=== PATIENT | female | born 1950 | race Caucasian/White ===

== ENCOUNTER 2017-09-27 16:01 | Emergency (ER) | payer MEDICARE, BC ==
[2017-09-27 16:29] LABS: BASOPHILS 0.1 % (0-2); EOSINOPHILS 1.6 % (0-7); HEMATOCRIT 45.4 % (36.0-48.0); HEMOGLOBIN 15.3 g/dL (12-16); IMMATURE GRANULOCYTES 0.4 % (0-5); LYMPHOCYTES 19.5 % (15-50); MCH 30.6 pg (26.0-34.0); MCHC 33.7 g/dL (31.0-37.0); MCV 90.8 fL (80.0-100.0); MEAN PLATELET VOLUME 9.7 fL (7.4-10.4); MONOCYTES 7.8 % (2-11); NEUTROPHILS 70.6 % (40-80); PLATELET COUNT 197 10x3/uL (130-400); RDW 13.9 % (11.5-14.5)
[2017-09-27 16:54] LABS: ALBUMIN 3.3 g/dL (3.4-5.0); ALKALINE PHOSPHATASE 296 U/L (46-116); ALT (SGPT) 99 U/L (10-68); BILIRUBIN - TOTAL 0.29 mg/dL (0.2-1.3); CALC OSMOLALITY 284 mosm/kg (275-300); CALCIUM 10.6 mg/dL (8.5-10.1); CARBON DIOXIDE 36.4 mmol/L (21.0-32.0); CHLORIDE - SERUM 97 mmol/L (98-107); CREATININE - SERUM 1.1 mg/dL (0.6-1.3); GLUCOSE 114 mg/dL (74-106); POTASSIUM - SERUM 4.4 mmol/L (3.5-5.1); PROTEIN - SERUM 7.7 g/dL (6.4-8.2); SODIUM 139 mmol/L (136-145); UREA NITROGEN 28 mg/dL (7-18); eGFR NON AFRICAN AMERICAN 52 mL/min (90-120)
[2017-09-27 17:19] LABS: CKMB 0.7 U/L (0.0-3.6); CREATINE KINASE 38 UL (21-215); TROPONIN-I < 0.017 ng/mL (0.000-0.060)
== END 2017-09-27 18:08 | disposition home or self-care (01) ==
LOC: D.ER 16:01
PROVIDERS: Family Medicine
DX: J20.9 Acute bronchitis, unspecified (principal); J44.1 Chronic obstructive pulmonary disease with (acute) exacerbation; I10 Essential (primary) hypertension; F17.200 Nicotine dependence, unspecified, uncomplicated

== ENCOUNTER 2017-12-22 07:38 | Inpatient (IN) | payer MEDICARE, BC ==
[~2017-12-22] VITALS: Ht 162.6 cm; Wt 105.2 kg
--- NOTE | ~2017-12-22 | CN ---
PATIENT NAME:MARTIN WEBSTER MEDICAL RECORD: [id number] : 46 LOCATION:D. D.2130 ADMIT DATE: 12/22/17 ACCOUNT: [id number] CONSULTING PHYSICIAN: DANA CRUZ MD REFERRING PHYSICIAN: MICK GARCIA MD DATE OF CONSULTATION: 12/22/2017 CONSULT REQUESTING PHYSICIAN: Mick Garcia MD REASON FOR CONSULTATION: Acute exacerbation of chronic obstructive pulmonary disease, [id number] hypoxic respiratory failure. HISTORY OF PRESENT ILLNESS: Ms. Webster is a 67-year-old female who has a history of chronic hypoxic respiratory failure as well as COPD. According to the patient, for the last few days, she has worsening shortness of breath. She is coughing, the cough is productive of white yellow color sputum production. There are no fever or chills, no night sweats. The patient came into the ER and the pulse ox was 86% on room air. REVIEW OF SYSTEMS: Mainly in the history of present illness. PAST MEDICAL HISTORY: 1. COPD. 2. Chronic hypoxic respiratory failure. 3. Hypertension. 4. Chronic backache. 5. She has a history of skin cancer. ALLERGIES: SHE IS ALLERGIC TO IODINE AND BETADINE. MEDICATIONS: She is on Norvasc, Catapres, Lewis, Zanaflex. PERSONAL AND SOCIAL HISTORY: The patient was a smoker for more than 30 years. She quit 4 years ago. She is a nondrinker. FAMILY HISTORY: Noncontributory. PHYSICAL EXAMINATION: GENERAL: Now, the patient is lying comfortably in bed. She is not in acute distress. VITAL SIGNS: The blood pressure 145/95, pulse is 90, respiration is 24, temperature 97.6, and SpO2 was 86% on room air. HEENT: Conjunctivae pink, sclerae nonicteric. NECK: Neck is supple, no JVD. CHEST: The chest excursion is minimal on both sides. There are wheezing on forceful expiration. HEART: Rhythm regular, normal sound, no murmur. ABDOMEN: The abdomen is soft. Bowel sounds present. No hepatosplenomegaly. RECTAL: Deferred. EXTREMITIES: No cyanosis, no clubbing, no pedal edema. SKIN: The skin is warm, normal turgor. CENTRAL NERVOUS SYSTEM: The patient is awake and alert. There are no obvious cranial nerve abnormality. The gait was not tested. CHEST RADIOGRAPH: There is no acute infiltrate. CONSULT REPORT [id number] MARTIN WEBSTER LABORATORY DATA: CBC: The WBC is 7.6, hemoglobin 13, hematocrit 40.4, the platelet count is 217. ABG: The pH is 7.32, pCO2 of 68.9, pO2 of 73, bicarbonate is 36.1. IMPRESSION: 1. Acute exacerbation of chronic obstructive pulmonary disease. 2. Sbcnb-qv-dmbecys hypoxic hypercapnic respiratory failure. 3. Acute tracheobronchitis. 4. Dyspnea on exertion. 5. Ex-smoker. 6. Acute cough. 7. Chronic backache. 8. Hypertension. RECOMMENDATIONS: 1. Adjust the dose of Levaquin. 2. Continue supplemental oxygen to keep the SpO2 above 90%. 3. Methylprednisolone IV. 4. Brovana, budesonide nebulizer. 5. Albuterol, ipratropium nebulizer. 6. Check alpha-1 antitrypsin level. 7. Follow up labs and chest radiograph. Dr. Garcia, thank you for involving me in the care of Ms. Webster. TRANSINT:[id number] Voice Confirmation ID: [id number] DOCUMENT ID: [id number] DANA CRUZ MD at 1340 CC: MICK GARCIA MD [id number] DICTATION DATE: 12/22/17 1638 PRIVATE SECTOR EXECUTIVE: 12/22/17 1736 DIS IN 12/23/17 [place] [id number]
[2017-12-22 08:27] LABS: BASOPHILS 0.3 % (0-2); EOSINOPHILS 4.7 % (0-7); HEMATOCRIT 40.4 % (36.0-48.0); IMMATURE GRANULOCYTES 0.4 % (0-5); LYMPHOCYTES 12.3 % (15-50); MCH 30.2 pg (26.0-34.0); MCHC 32.2 g/dL (31.0-37.0); MEAN PLATELET VOLUME 10.2 fL (7.4-10.4); MONOCYTES 8.3 % (2-11); PLATELET COUNT 217 10x3/uL (130-400); RDW 14.1 % (11.5-14.5); WBC 7.6 10x3/uL (4.8-10.8)
[2017-12-22 08:45] LABS: ALBUMIN 3.4 g/dL (3.4-5.0); ALKALINE PHOSPHATASE 310 U/L (46-116); ALT (SGPT) 93 U/L (10-68); CALC OSMOLALITY 280 mosm/kg (275-300); CALCIUM 9.6 mg/dL (8.5-10.1); CHLORIDE - SERUM 98 mmol/L (98-107); CREATININE - SERUM 0.9 mg/dL (0.6-1.3); GLUCOSE 136 mg/dL (74-106); POTASSIUM - SERUM 4.7 mmol/L (3.5-5.1); PROTEIN - SERUM 7.4 g/dL (6.4-8.2); SODIUM 138 mmol/L (136-145); UREA NITROGEN 22 mg/dL (7-18); eGFR NON AFRICAN AMERICAN 66 mL/min (90-120)
[2017-12-22 08:57] LABS: CREATINE KINASE 99 UL (21-215); PRO BNP 499 pg/mL (0-125)
[2017-12-22 09:00] LABS: TROPONIN-I < 0.017 ng/mL (0.000-0.060)
[2017-12-22 21:41] VITALS: BP 173/87
[2017-12-22] MEDS ORDERED: CELEBREX200 MG PO (21:58)
[2017-12-22] MEDS ORDERED: FLUTICASONE PRO16 GM NASAL (21:58)
[2017-12-22] MEDS ORDERED: NEURONTIN600 MG PO (21:59)
[2017-12-22] MEDS ORDERED: LASIX20 MG PO (21:59)
[2017-12-22] MEDS ORDERED: ZANAFLEX4 MG PO (22:00)
[2017-12-22] MEDS ORDERED: K-DUR20 MEQ PO (22:01)
[2017-12-22] MEDS ORDERED: HYDROXYZINE HCL50 MG PO (22:02)
[2017-12-22] MEDS ORDERED: DYAZIDE 37.5/251 CAP PO (22:03)
[2017-12-22] MEDS ORDERED: ELAVIL25 MG PO (22:03)
[2017-12-22] MEDS ORDERED: NORVASC10 MG PO (22:03)
[2017-12-22] MEDS ORDERED: HYDROCODONE-APA1 TAB PO (22:04)
[2017-12-22] MEDS ORDERED: XANAX0.5 MG PO (22:04)
[2017-12-22 22:35] VITALS: BP 163/87; Ht 162.6 cm; Wt 105.2 kg
[2017-12-23 00:41] VITALS: BP 133/76
[2017-12-23 05:32] VITALS: BP 109/52
[2017-12-23 07:33] VITALS: BP 165/78
[2017-12-23 11:31] VITALS: BP 144/81
[2017-12-23 15:56] VITALS: BP 138/88
[2017-12-23] MEDS ORDERED: Levaquin PREMIX PO (17:59)
[2017-12-23] MEDS ORDERED: BROVANA15 MCG/2 M INH (18:00)
[2017-12-23] MEDS ORDERED: IPRAT-ALBUT 0.5-3 ML UPD (18:00)
[2017-12-23] MEDS ORDERED: PULMICORT0.5 MG/21 UPD (18:01)
[2017-12-23] MEDS ORDERED: BENZONATATE200 MG PO (18:01)
[2017-12-23] MEDS ORDERED: MUCINEX DM ER1 EAC1 PO (18:01)
== END 2017-12-23 19:54 | disposition home or self-care (01) | DRG 193 ==
LOC: D.ER 07:38 → D.EDHOLD 09:48 → D.M2 09:48
PROVIDERS: Emergency Medicine
DX: J18.9 Pneumonia, unspecified organism (principal); J96.21 Acute and chronic respiratory failure with hypoxia; J44.1 Chronic obstructive pulmonary disease with (acute) exacerbation; J44.0 Chronic obstructive pulmonary disease with (acute) lower respiratory infection; E87.2 Acidosis; J20.9 Acute bronchitis, unspecified; R01.1 Cardiac murmur, unspecified; I10 Essential (primary) hypertension; E78.5 Hyperlipidemia, unspecified; H35.30 Unspecified macular degeneration; Z86.73 Personal history of transient ischemic attack (TIA), and cerebral infarction without residual deficits; M19.90 Unspecified osteoarthritis, unspecified site; Z87.891 Personal history of nicotine dependence; R74.8 Abnormal levels of other serum enzymes

== ENCOUNTER → 2018-02-17 09:22 | Outpatient (CLI) | payer MEDICARE, BC ==
[2017-12-22 22:35] VITALS: BMI 39.8
[~2018-02-17 09:22] MED LIST: BENZONATATE200 MG PO; BROVANA15 MCG/2 M INH; CELEBREX200 MG PO; DYAZIDE 37.5/251 CAP PO; ELAVIL25 MG PO; FLUTICASONE PRO16 GM NASAL; HYDROCODONE-APA1 TAB PO; HYDROXYZINE HCL50 MG PO; IPRAT-ALBUT 0.5-3 ML UPD; K-DUR20 MEQ PO; LASIX20 MG PO; Levaquin PREMIX PO; MUCINEX DM ER1 EAC1 PO; NEURONTIN600 MG PO; NORVASC10 MG PO; PULMICORT0.5 MG/21 UPD; XANAX0.5 MG PO; ZANAFLEX4 MG PO
== END | disposition home or self-care (01) ==
LOC: D.US 09:22
DX: R47.9 Unspecified speech disturbances (principal); R74.8 Abnormal levels of other serum enzymes

== ENCOUNTER → 2018-03-17 14:27 | Outpatient (CLI) | payer MEDICARE, BC ==
[2017-12-22 22:35] VITALS: BMI 39.8
== END | disposition home or self-care (01) ==
LOC: D.RAD 14:27
DX: M54.5 Low back pain (principal)

== ENCOUNTER → 2018-05-03 08:00 | Outpatient (CLI) | payer MEDICARE, BC ==
[2017-12-22 22:35] VITALS: BMI 39.8
== END | disposition home or self-care (01) ==
LOC: D.RAD 03-03 14:00 → D.RT 03-03 14:00 → D.RAD 03-03 15:00 → D.RT 04-14 14:00 → D.RAD 04-14 14:00 → D.RT 08:00
DX: J44.9 Chronic obstructive pulmonary disease, unspecified (principal)

== ENCOUNTER → 2018-07-03 14:40 | Outpatient (CLI) | payer MEDICARE, BC ==
[2017-12-22 22:35] VITALS: BMI 39.8
[2018-07-05 10:23] LABS: ANA REFLEX - DIRECT Negative (Negative)
== END | disposition home or self-care (01) ==
LOC: D.LABREF 14:40
PROVIDERS: Internal Medicine Pulmonary Disease
DX: J84.9 Interstitial pulmonary disease, unspecified (principal)

== ENCOUNTER 2018-09-04 11:15 | Emergency (ER) | payer MEDICARE, BC ==
[~2018-09-04] VITALS: Ht 162.6 cm; Wt 104.5 kg
[2018-09-04 11:19] VITALS: Ht 162.6 cm; Wt 104.5 kg
[2018-09-04] MEDS ORDERED: HYDROCODON-ACE1 EAC7 PO (12:31)
[2018-09-04 12:42] VITALS: BP 145/81
== END 2018-09-04 12:44 | disposition home or self-care (01) ==
LOC: D.ER 11:15
DX: S63.501A Unspecified sprain of right wrist, initial encounter (principal); W18.30XA Fall on same level, unspecified, initial encounter; Y93.89 Activity, other specified; Y92.019 Unspecified place in single-family (private) house as the place of occurrence of the external cause; S92.412A Displaced fracture of proximal phalanx of left great toe, initial encounter for closed fracture; I10 Essential (primary) hypertension; J44.9 Chronic obstructive pulmonary disease, unspecified